=== PATIENT | female | born 1950 | race Hispanic/Latino ===

== ENCOUNTER → 2018-04-27 | Outpatient (CLI) | payer MEDICARE ==
[~2018-04-27] MED LIST: ATORVASTATIN CA10 MG PO; CITALOPRAM HBR20 MG PO; JANUMET 50-1,01 EACH PO; LEVOTHYROXINE50 MCG PO; LISINOPRIL2.5 MG PO; OSTERA TABLET1 EACH PO; TYLENOL WITH C1 EACH PO
--- NOTE | 2018-04-27 12:37 | Diagnostic Imaging Report ---
Exam: Bone mineral density study. History: Osteopenia. Comparison: None Discussion: Evaluation of the left hip, and lumbar spine was performed utilizing DEXA Hologic bone densitometer. The study is technically adequate. Left hip total bone mineral density: 0.840gm/cm2, T-score is -0.9, Z-score is 0.3. Left hip femoral neck bone mineral density: 0.762gm/cm2, T-score is -0.9, Z-score is 0.6. Lumbar spine total bone mineral density:0.818gm/cm2, T-score is-2.1, Z-score is -0.2. Impression: 1. Normal bone mineral density of the left hip, fracture risk is not increased. 2. Osteopenia of the lumbar spine, fracture risk is increased. This is the baseline study at this institution Least significant change (LSC) for bone mineral density as provided by talent engineer is 0.023 g/cm2 for lumbar spine and 0.027 g/cm2 for total hip. 10 -year fracture risk per WHO Fracture Risk Assessment Tool (FRAX) for: Major osteoporotic fracture is 7.4% Hip fracture is 0.5% The above fracture probability is calculated for an untreated patient. Fracture probably may be lower if the patient has received treatment. All treatment decisions require clinical judgment and consideration of individual patient factors, including patient preferences, comorbidities, previous drug use and risk factors not captured in the FRAX model (e.g. frailty, falls, vitamin D deficiency, increased bone turnover, interval significant decline in BMD). The patient's fracture risk is compared to an age-matched control. Medical evaluation for secondary causes of low bone bone mineral density may be appropriate. Correlate clinically for the necessity and timing of the next bone mineral density study Signed by: Dr. Piter Orozco M.D. on 04/27/2018 12:34 PM
== END ==
LOC: DX 11:43
PROVIDERS: ATTEND Specialist
DX: S42.231D 3-part fracture of surgical neck of right humerus, subsequent encounter for fracture with routine healing (principal); S52.572D Other intraarticular fracture of lower end of left radius, subsequent encounter for closed fracture with routine healing
CPT/HCPCS: 77080

== ENCOUNTER → 2019-09-16 | Day surgery (SDC) | payer MEDICARE, OTHER ==
[2019-09-13 10:25] LABS: BASOPHILS # (AUTO) 0.1 (0.0-0.1); EOSINOPHILS # (AUTO) 0.1 (0.0-0.4); EOSINOPHILS % 2.1 % (0.0-6.0); HEMATOCRIT 37.8 % (34.2-44.1); HEMOGLOBIN 12.5 g/dL (12.0-16.0); LYMPHOCYTES # (AUTO) 1.8 (1.0-3.2); LYMPHOCYTES % 31.3 % (18.0-39.1); MEAN CORPUSCULAR HEMOGLOBIN 28.9 pg (28-32); MEAN CORPUSCULAR HGB CONC 33.1 g/dL (31-35); MEAN CORPUSCULAR VOLUME 87.5 fL (81-99); MONOCYTES # (AUTO) 0.4 (0.2-0.8); MONOCYTES % 6.9 % (4.4-11.3); NEUTROPHILS # (AUTO) 3.4 (2.1-6.9); NEUTROPHILS % 58.5 % (38.7-80.0); PLATELET COUNT 185 x10e3/uL (140-360); RED BLOOD COUNT 4.32 x10e6/uL (3.6-5.1); RED CELL DISTRIBUTION WIDTH 13.1 % (11.7-14.4)
[~2019-09-16] MED LIST changes: +ASPIR 8181 MG PO; +BUPROPION XL150 MG PO; +METFORMIN HCL500 MG PO; +PROPOFOL IV EMULSION 10 MG/ML 20 ML VIAL ONE; +SIMVASTATIN20 MG PO
[2019-09-16 07:30] VITALS: BP 132/73
== END | disposition home or self-care (01) ==
LOC: OR 05:42
PROVIDERS: ATTEND Internal Medicine Gastroenterology
DX: R13.10 Dysphagia, unspecified (principal); K29.50 Unspecified chronic gastritis without bleeding; K44.9 Diaphragmatic hernia without obstruction or gangrene; B96.81 Helicobacter pylori [H. pylori] as the cause of diseases classified elsewhere; I10 Essential (primary) hypertension; E11.9 Type 2 diabetes mellitus without complications; B19.20 Unspecified viral hepatitis C without hepatic coma; Z01.810 Encounter for preprocedural cardiovascular examination; Z01.812 Encounter for preprocedural laboratory examination; Z11.59 Encounter for screening for other viral diseases; Z79.82 Long term (current) use of aspirin; Z86.73 Personal history of transient ischemic attack (TIA), and cerebral infarction without residual deficits; Z87.891 Personal history of nicotine dependence
CPT/HCPCS: 36415 ×2; 43239; 43450; 82948; 85025; 87635; 88305; 88312; 93005; J2704; 43248